=== PATIENT | female | born 1945 | race Hispanic/Latino ===

== ENCOUNTER 2024-09-06 17:22 | Emergency (ER) | payer MEDICARE, BC ==
[~2024-09-06] VITALS: Ht 152.4 cm; Wt 59.4 kg
[~2024-09-06 17:22] MED LIST: ADVIL PM CAPLE1 EACH PO; ANTIVERT25 MG PO; LIPITOR20 MG; LISINOPRIL10 MG PO; ULTRAM 50MG50 MG PO
[2024-09-06 17:44] VITALS: TEMP 98.8
[2024-09-06 18:27] LABS: BASOPHILS % 0.5 % (0.0-1.0); EOSINOPHILS # (AUTO) 0.1 (0.0-0.4); EOSINOPHILS % 0.6 % (0.0-6.0); HEMATOCRIT 36.5 % (34.2-44.1); LYMPHOCYTES # (AUTO) 2.2 (1.0-3.2); LYMPHOCYTES % 27.4 % (18.0-39.1); MEAN CORPUSCULAR HEMOGLOBIN 29.4 pg (28-32); MEAN CORPUSCULAR HGB CONC 30.1 g/dL (31-35); MEAN CORPUSCULAR VOLUME 97.6 fL (81-99); MONOCYTES # (AUTO) 0.3 (0.2-0.8); MONOCYTES % 3.3 % (4.4-11.3); NEUTROPHILS # (AUTO) 5.6 (2.1-6.9); NEUTROPHILS % 68.1 % (38.7-80.0); PLATELET COUNT 235 x10e3/uL (140-360); RED BLOOD COUNT 3.74 x10e6/uL (3.6-5.1); RED CELL DISTRIBUTION WIDTH 13.4 % (11.7-14.4); WHITE BLOOD COUNT 8.19 x10e3/uL (4.8-10.8)
[2024-09-06 18:38] LABS: ANION GAP 13.5 mmol/L (8-16); CALCIUM 9.5 mg/dL (8.4-10.2); CREATININE, SERUM 0.93 mg/dL (0.57-1.11); POTASSIUM 3.5 mmol/L (3.5-5.1)
[2024-09-06] MEDS ORDERED: IOPAMIDOL 370 MG/ML 100 ML INFUS..BTL INJ ONE (18:48)
[2024-09-06 20:14] VITALS: PULSE 63; RESP 20; O2SAT 99
== END 2024-09-06 20:25 | disposition home or self-care (01) ==
LOC: ER 18:13
DX: R20.2 Paresthesia of skin (principal); I77.9 Disorder of arteries and arterioles, unspecified; I10 Essential (primary) hypertension; E78.5 Hyperlipidemia, unspecified; F17.210 Nicotine dependence, cigarettes, uncomplicated
CPT/HCPCS: 36415; 70496; 70498; 80048; 85025; 99283; Q9967